=== PATIENT | male | born 1955 | race African-American/Black ===

== ENCOUNTER 2022-01-21 12:21 | Inpatient (IN) | payer BC ==
[2022-01-21] MEDS ORDERED: NALOXONE HCL (KLOXXADO) 8 MG SPRAY NS PRN (15:02)
[2022-01-21] MEDS ORDERED: ONDANSETRON *ODT* 4 MG TABLET SL PRN (15:02)
[2022-01-21] MEDS ORDERED: ACETAMINOPHEN 325 MG TABLET (FP) PO PRN ×2 (15:02)
[2022-01-21] MEDS ORDERED: NICOTINE 10 MG CARTRIDGE (INHALER) IH PRN (15:02)
[2022-01-21] MEDS ORDERED: BISMUTH SUBSALICYLATE 262 MG/15 ML BTL PO PRN (15:02)
[2022-01-21] MEDS ORDERED: BENZOCAINE/MENTHOL (CHLORASEPTIC ) LOZENGE MM PRN (15:02)
[2022-01-21] MEDS ORDERED: IBUPROFEN 400 MG TABLET (FP) PO PRN (15:02)
[2022-01-21] MEDS ORDERED: MAGNESIUM CITRATE 300 ML BOTTLE PO PRN (15:02)
[2022-01-21] MEDS ORDERED: MAGNESIUM HYDROX 2400MG/30ML ORAL SUSPENSION 30 ML CUP PO PRN (15:02)
[2022-01-21] MEDS ORDERED: MAG HYDROX/AL HYDROX/SIMETH 30 ML UNIT-DOSE CUP PO PRN (15:02)
[2022-01-21] MEDS ORDERED: cloNIDine HCL 0.1 MG TABLET PO ONE ×2 (15:06→17:48)
[2022-01-21 15:32] VITALS: BMI 31.7
[2022-01-21] MEDS ORDERED: hydrOXYzine PAMOATE 25 MG CAPSULE (FP) PO PRN (18:00)
[2022-01-21] MEDS: PRENATAL VITAMINS W/ FOLIC ACID TABLET (FP) PO SCH (18:03)
[2022-01-21] MEDS: DICYCLOMINE HCL 10 MG CAPSULE PO PRN (20:26)
[2022-01-21] MEDS ORDERED: chlordiazePOXIDE HCL 25 MG CAPSULE PO PRN (20:44)
[2022-01-21] MEDS ORDERED: methaDONE HCL 10 MG TABLET (FOR DETOX USE ONLY) PO ONE (20:49)
[2022-01-21] MEDS: MINERAL OIL/PET HY-PHL TOPICAL OINTMENT 454 GM JAR TP SCH (22:35)
[2022-01-21] MEDS: METHOCARBAMOL 500 MG TABLET PO PRN (22:36)
[2022-01-21] MEDS: THIAMINE HCL 100 MG TABLET (FP) PO SCH (22:37)
[2022-01-21] MEDS: chlordiazePOXIDE HCL 25 MG CAPSULE PO SCH (22:37)
[2022-01-21] MEDS: LOPERAMIDE HCL 2 MG CAPSULE PO PRN (22:40)
[2022-01-21] MEDS: MELATONIN 5 MG TABLETS PO SCH (22:40)
[2022-01-21] MEDS: VITAMINS A AND D TOPICAL OINTMENT 60 GM TUBE TP SCH (23:04)
[2022-01-22] MEDS: chlordiazePOXIDE HCL 25 MG CAPSULE PO SCH ×4 (05:25→22:25)
[2022-01-22] MEDS: VITAMINS A AND D TOPICAL OINTMENT 60 GM TUBE TP SCH ×4 (05:27→22:25)
[2022-01-22] MEDS: PRENATAL VITAMINS W/ FOLIC ACID TABLET (FP) PO SCH (10:41)
[2022-01-22] MEDS: MINERAL OIL/PET HY-PHL TOPICAL OINTMENT 454 GM JAR TP SCH (10:43)
[2022-01-22] MEDS: LOPERAMIDE HCL 2 MG CAPSULE PO PRN ×2 (10:44→18:01)
[2022-01-22 10:46] LABS: HEMATOCRIT 37.9 % (35.4-49); HEMOGLOBIN 12.5 GM/dL (11.7-16.9); MCH 29.6 pg (25.7-33.7); MEAN CELL VOLUME 89.7 fl (80-96); MEAN PLT VOLUME 9.4 fl (7.5-11.1); PLATELET COUNT 206 10^3/uL (134-434); RBC 4.22 M/mm3 (4.00-5.60); RDW 12.4 % (11.9-15.9); WHITE BLOOD COUNT 6.6 K/mm3 (4.0-10.0)
[2022-01-22 11:05] LABS: CALCIUM 9.2 mg/dL (8.5-10.1)
[2022-01-22 11:06] LABS: ALBUMIN 3.4 g/dl (3.4-5.0)
[2022-01-22 11:09] LABS: CREATININE 1.1 mg/dL (0.55-1.3)
[2022-01-22 11:10] LABS: BILIRUBIN,TOTAL 0.8 mg/dL (0.2-1)
[2022-01-22 11:13] LABS: TOT PROT 6.7 g/dl (6.4-8.2)
[2022-01-22] MEDS: DICYCLOMINE HCL 10 MG CAPSULE PO PRN (18:01)
[2022-01-22] MEDS: THIAMINE HCL 100 MG TABLET (FP) PO SCH (22:25)
[2022-01-22] MEDS: MELATONIN 5 MG TABLETS PO SCH (22:25)
[2022-01-23] MEDS: VITAMINS A AND D TOPICAL OINTMENT 60 GM TUBE TP SCH ×5 (01:52→23:15)
[2022-01-23] MEDS: chlordiazePOXIDE HCL 25 MG CAPSULE PO SCH ×4 (05:17→22:17)
[2022-01-23] MEDS ORDERED: methaDONE HCL 10 MG TABLET (FOR DETOX USE ONLY) PO ONE (10:00)
[2022-01-23] MEDS: METHOCARBAMOL 500 MG TABLET PO PRN (10:24)
[2022-01-23] MEDS: PRENATAL VITAMINS W/ FOLIC ACID TABLET (FP) PO SCH (10:25)
[2022-01-23] MEDS: MINERAL OIL/PET HY-PHL TOPICAL OINTMENT 454 GM JAR TP SCH (10:27)
[2022-01-23] MEDS: THIAMINE HCL 100 MG TABLET (FP) PO SCH (22:17)
[2022-01-23] MEDS: MELATONIN 5 MG TABLETS PO SCH (22:17)
[2022-01-24] MEDS ORDERED: chlordiazePOXIDE HCL 10 MG CAPSULE PO PRN
[2022-01-24] MEDS ORDERED: chlordiazePOXIDE HCL 10 MG CAPSULE PO SCH (05:00)
[2022-01-24] MEDS: VITAMINS A AND D TOPICAL OINTMENT 60 GM TUBE TP SCH (05:24)
[2022-01-24] MEDS: METHOCARBAMOL 500 MG TABLET PO PRN (05:24)
[2022-01-24 08:02] VITALS: BP 168/84; PULSE 62; TEMP 97.1
[2022-01-24] MEDS ORDERED: methaDONE HCL 10 MG TABLET (FOR DETOX USE ONLY) PO ONE (10:00)
[2022-01-25] MEDS ORDERED: chlordiazePOXIDE HCL 10 MG CAPSULE PO SCH (05:00)
[2022-01-26] MEDS ORDERED: chlordiazePOXIDE HCL 10 MG CAPSULE PO ONE (05:00)
== END 2022-01-24 09:50 | disposition left against medical advice (07) | DRG 894 ==
LOC: YASAS 12:21 → Y3N 15:47
PROVIDERS: ADMIT Allergy & Immunology; ATTEND Surgery
PROC: HZ2ZZZZ Detoxification Services for Substance Abuse Treatment (ICD-10-PCS; principal; 2022-01-21)
DX: F11.23 Opioid dependence with withdrawal (principal); F10.230 Alcohol dependence with withdrawal, uncomplicated; L40.9 Psoriasis, unspecified
CPT/HCPCS: 36415; 80053; 85027; 86780; 87811; 93005; 93010; C9803-CS; J0735; Q0162; U0003; U0005

== ENCOUNTER 2022-03-21 08:34 | Inpatient (IN) | payer BC ==
[2022-03-21] MEDS ORDERED: LISINOPRIL 10 MG TABLET PO STA (09:06)
[2022-03-21] MEDS ORDERED: LOPERAMIDE HCL 2 MG CAPSULE PO PRN (09:31)
[2022-03-21] MEDS ORDERED: MAGNESIUM CITRATE 300 ML BOTTLE PO PRN (09:31)
[2022-03-21] MEDS ORDERED: ONDANSETRON *ODT* 4 MG TABLET SL PRN (09:31)
[2022-03-21] MEDS ORDERED: BISMUTH SUBSALICYLATE 524 MG/30 ML PO PRN (09:31)
[2022-03-21] MEDS ORDERED: IBUPROFEN 400 MG TABLET (FP) PO PRN (09:31)
[2022-03-21] MEDS ORDERED: ACETAMINOPHEN 325 MG TABLET (FP) PO PRN ×2 (09:31)
[2022-03-21] MEDS ORDERED: methaDONE HCL 10 MG TABLET (FOR DETOX USE ONLY) PO ONE (09:31)
[2022-03-21] MEDS ORDERED: MAGNESIUM HYDROX 2400MG/30ML ORAL SUSPENSION 30 ML CUP PO PRN (09:31)
[2022-03-21] MEDS ORDERED: DICYCLOMINE HCL 10 MG CAPSULE PO PRN (09:31)
[2022-03-21] MEDS ORDERED: LORazepam 2 MG TABLET PO ONE (09:31)
[2022-03-21] MEDS ORDERED: BENZOCAINE/MENTHOL (CHLORASEPTIC ) LOZENGE MM PRN (09:31)
[2022-03-21] MEDS ORDERED: MAG HYDROX/AL HYDROX/SIMETH 30 ML UNIT-DOSE CUP PO PRN (09:31)
[2022-03-21] MEDS ORDERED: LORazepam 1 MG TABLET PO PRN (09:31)
[2022-03-21] MEDS ORDERED: IBUPROFEN 600 MG TABLET (FP) PO PRN (09:31)
[2022-03-21] MEDS ORDERED: COLLOIDAL OATMEAL 1 BAR EACH TP PRN (09:48)
[2022-03-21] MEDS ORDERED: HYDROCORTISONE 1% TOPICAL OINT 30 GM TUBE TP PRN (09:48)
[2022-03-21] MEDS ORDERED: LISINOPRIL 10 MG TABLET ONE (10:16)
[2022-03-21 10:29] VITALS: BMI 33.2
[2022-03-21] MEDS ORDERED: methaDONE HCL 10 MG TABLET (FOR DETOX USE ONLY) ONE (11:24)
[2022-03-21] MEDS ORDERED: LORazepam 2 MG TABLET ONE (11:25)
[2022-03-21] MEDS ORDERED: cloNIDine HCL 0.1 MG TABLET ONE (11:25)
[2022-03-21] MEDS: cloNIDine HCL 0.1 MG TABLET PO PRN ×2 (11:30→22:23)
[2022-03-21] MEDS: PRENATAL VITAMINS W/ FOLIC ACID TABLET (FP) PO SCH (14:32)
[2022-03-21] MEDS: LORazepam 2 MG TABLET PO SCH ×2 (18:13→22:24)
[2022-03-21] MEDS: MELATONIN 5 MG TABLETS PO SCH (22:23)
[2022-03-21] MEDS: THIAMINE HCL 100 MG TABLET (FP) PO SCH (22:24)
[2022-03-22] MEDS: LORazepam 2 MG TABLET PO SCH ×4 (05:27→22:08)
[2022-03-22] MEDS: cloNIDine HCL 0.1 MG TABLET PO PRN ×3 (08:11→22:09)
[2022-03-22] MEDS: METHOCARBAMOL 500 MG TABLET PO PRN ×2 (08:13→17:44)
[2022-03-22 09:08] LABS: HEMATOCRIT 39.7 % (35.4-49); HEMOGLOBIN 13.4 GM/dL (11.7-16.9); MCH 29.6 pg (25.7-33.7); MCHC 33.9 g/dl (32.0-35.9); MEAN CELL VOLUME 87.2 fl (80-96); MEAN PLT VOLUME 9.5 fl (7.5-11.1); PLATELET COUNT 208 10^3/uL (134-434); RBC 4.55 M/mm3 (4.00-5.60); RDW 12.1 % (11.9-15.9); WHITE BLOOD COUNT 7.1 K/mm3 (4.0-10.0)
[2022-03-22 09:13] LABS: CALCIUM 9.5 mg/dL (8.5-10.1)
[2022-03-22] MEDS ORDERED: methaDONE HCL 10 MG TABLET (FOR DETOX USE ONLY) ONE (09:13)
[2022-03-22 09:14] LABS: ALBUMIN 3.4 g/dl (3.4-5.0); BLOOD UREA NITROGEN 13.8 mg/dL (7-18)
[2022-03-22 09:19] LABS: BILIRUBIN,TOTAL 0.4 mg/dL (0.2-1)
[2022-03-22] MEDS: PRENATAL VITAMINS W/ FOLIC ACID TABLET (FP) PO SCH (10:57)
[2022-03-22] MEDS: LISINOPRIL 5 MG TABLET PO SCH (10:57)
[2022-03-22 16:54] LABS: HIV INTERPRETATION NEGATIVE (NEGATIVE)
[2022-03-22] MEDS: THIAMINE HCL 100 MG TABLET (FP) PO SCH (22:08)
[2022-03-22] MEDS: MELATONIN 5 MG TABLETS PO SCH (22:08)
[2022-03-23] MEDS: cloNIDine HCL 0.1 MG TABLET PO PRN (06:05)
[2022-03-23] MEDS: LORazepam 1 MG TABLET PO SCH ×4 (06:05→22:15)
[2022-03-23] MEDS: METHOCARBAMOL 500 MG TABLET PO PRN (06:05)
[2022-03-23] MEDS ORDERED: methaDONE HCL 10 MG TABLET (FOR DETOX USE ONLY) PO ONE (10:00)
[2022-03-23] MEDS: PRENATAL VITAMINS W/ FOLIC ACID TABLET (FP) PO SCH (10:11)
[2022-03-23] MEDS: LISINOPRIL 5 MG TABLET PO SCH (10:12)
[2022-03-23] MEDS ORDERED: LISINOPRIL 5 MG TABLET PO ONE (13:32)
[2022-03-23] MEDS: MELATONIN 5 MG TABLETS PO SCH (22:16)
[2022-03-23] MEDS: THIAMINE HCL 100 MG TABLET (FP) PO SCH (22:16)
[2022-03-24] MEDS ORDERED: LORazepam 0.5 MG TABLET PO PRN
[2022-03-24] MEDS: LORazepam 0.5 MG TABLET PO SCH ×4 (05:16→22:29)
[2022-03-24 06:07] VITALS: RESP 18
[2022-03-24] MEDS ORDERED: methaDONE HCL 10 MG TABLET (FOR DETOX USE ONLY) ONE (09:38)
[2022-03-24] MEDS: METHOCARBAMOL 500 MG TABLET PO PRN (10:01)
[2022-03-24] MEDS: LISINOPRIL 10 MG TABLET PO SCH (10:01)
[2022-03-24] MEDS: PRENATAL VITAMINS W/ FOLIC ACID TABLET (FP) PO SCH (10:01)
[2022-03-24] MEDS: MELATONIN 5 MG TABLETS PO SCH (22:30)
[2022-03-24] MEDS: THIAMINE HCL 100 MG TABLET (FP) PO SCH (22:31)
[2022-03-25] MEDS ORDERED: LORazepam 0.5 MG TABLET PO ONE (05:00)
[2022-03-25 06:03] VITALS: TEMP 97.5
[2022-03-25 08:48] VITALS: BP 149/80; PULSE 78
[2022-03-25] MEDS: LISINOPRIL 10 MG TABLET PO SCH (09:14)
[2022-03-25] MEDS: PRENATAL VITAMINS W/ FOLIC ACID TABLET (FP) PO SCH (09:15)
[2022-03-25] MEDS ORDERED: methaDONE HCL 10 MG TABLET (FOR DETOX USE ONLY) PO ONE (10:00)
== END 2022-03-25 10:00 | disposition home or self-care (01) | DRG 897 ==
LOC: YASAS 08:34 → Y3N 13:32
PROVIDERS: ADMIT Allergy & Immunology; ATTEND Surgery
PROC: HZ2ZZZZ Detoxification Services for Substance Abuse Treatment (ICD-10-PCS; principal; 2022-03-21)
DX: F11.23 Opioid dependence with withdrawal (principal); F10.230 Alcohol dependence with withdrawal, uncomplicated; I10 Essential (primary) hypertension; L40.9 Psoriasis, unspecified
CPT/HCPCS: 36415; 80053; 85027; 86780; 87389; 87811; C9803-CS; J0735; U0003; U0005

== ENCOUNTER 2022-08-12 10:05 | Inpatient (IN) | payer BC ==
[2022-08-12 11:03] VITALS: BMI 30.2
[2022-08-12] MEDS ORDERED: cloNIDine HCL 0.1 MG TABLET PO ONE (11:56)
[2022-08-12] MEDS ORDERED: ONDANSETRON *ODT* 4 MG TABLET SL PRN (11:58)
[2022-08-12] MEDS ORDERED: MAG HYDROX/AL HYDROX/SIMETH 30 ML UNIT-DOSE CUP PO PRN (11:58)
[2022-08-12] MEDS ORDERED: NALOXONE HCL (KLOXXADO) 8 MG SPRAY NS PRN (11:58)
[2022-08-12] MEDS ORDERED: MAGNESIUM HYDROX 2400MG/30ML ORAL SUSPENSION 30 ML CUP PO PRN (11:58)
[2022-08-12] MEDS ORDERED: METHOCARBAMOL 500 MG TABLET PO PRN (11:58)
[2022-08-12] MEDS ORDERED: DICYCLOMINE HCL 10 MG CAPSULE PO PRN (11:58)
[2022-08-12] MEDS ORDERED: methaDONE HCL 10 MG TABLET (FOR DETOX USE ONLY) PO ONE (11:58)
[2022-08-12] MEDS ORDERED: IBUPROFEN 400 MG TABLET (FP) PO PRN (11:58)
[2022-08-12] MEDS ORDERED: BENZOCAINE/MENTHOL (CHLORASEPTIC ) LOZENGE MM PRN (11:58)
[2022-08-12] MEDS ORDERED: hydrOXYzine PAMOATE 25 MG CAPSULE (FP) PO PRN (11:58)
[2022-08-12] MEDS ORDERED: chlordiazePOXIDE HCL 25 MG CAPSULE PO PRN (11:58)
[2022-08-12] MEDS ORDERED: ACETAMINOPHEN 325 MG TABLET (FP) PO PRN ×2 (11:58)
[2022-08-12] MEDS ORDERED: POLYETHYLENE GLYCOL (HEALTHYLAX) 3350 17 GM PACKET PO PRN (11:58)
[2022-08-12] MEDS ORDERED: LOPERAMIDE HCL 2 MG CAPSULE PO PRN (11:58)
[2022-08-12] MEDS ORDERED: BISMUTH SUBSALICYLATE 262 MG/15 ML BTL PO PRN (11:58)
[2022-08-12] MEDS ORDERED: cloNIDine HCL 0.1 MG TABLET ONE (12:02)
[2022-08-12] MEDS ORDERED: ACETAMINOPHEN 325 MG TABLET (FP) ONE (12:50)
[2022-08-12] MEDS ORDERED: methaDONE HCL 10 MG TABLET (FOR DETOX USE ONLY) ONE (13:35)
[2022-08-12] MEDS: chlordiazePOXIDE HCL 25 MG CAPSULE PO SCH ×2 (17:40→22:23)
[2022-08-12] MEDS: cloNIDine HCL 0.1 MG TABLET PO PRN ×2 (18:02→21:33)
[2022-08-12] MEDS: MELATONIN 5 MG TABLETS PO SCH (21:38)
[2022-08-12] MEDS: THIAMINE HCL 100 MG TABLET (FP) PO SCH (21:39)
[2022-08-13] MEDS ORDERED: LISINOPRIL 20 MG TABLET PO ONE (01:04)
[2022-08-13] MEDS: chlordiazePOXIDE HCL 25 MG CAPSULE PO SCH ×4 (05:46→22:40)
[2022-08-13 10:17] LABS: HEMATOCRIT 38.1 % (35.4-49); HEMOGLOBIN 12.5 GM/dL (11.7-16.9); MCH 29.1 pg (25.7-33.7); MCHC 32.9 g/dl (32.0-35.9); MEAN CELL VOLUME 88.6 fl (80-96); MEAN PLT VOLUME 9.7 fl (7.5-11.1); PLATELET COUNT 200 10^3/uL (134-434); WHITE BLOOD COUNT 7.8 K/mm3 (4.0-10.0)
[2022-08-13] MEDS: PRENATAL VITAMINS W/ FOLIC ACID TABLET (FP) PO SCH (10:22)
[2022-08-13 10:46] LABS: ALBUMIN 3.5 g/dl (3.4-5.0)
[2022-08-13 10:51] LABS: BILIRUBIN,TOTAL 0.5 mg/dL (0.2-1); TOT PROT 6.9 g/dl (6.4-8.2)
[2022-08-13] MEDS: cloNIDine HCL 0.1 MG TABLET PO PRN ×2 (12:57→22:40)
[2022-08-13] MEDS: MELATONIN 5 MG TABLETS PO SCH (22:40)
[2022-08-13] MEDS: THIAMINE HCL 100 MG TABLET (FP) PO SCH (22:40)
[2022-08-14] MEDS: chlordiazePOXIDE HCL 25 MG CAPSULE PO SCH ×4 (05:38→22:25)
[2022-08-14] MEDS: IBUPROFEN 600 MG TABLET (FP) PO PRN (05:44)
[2022-08-14] MEDS ORDERED: methaDONE HCL 10 MG TABLET (FOR DETOX USE ONLY) PO ONE (10:00)
[2022-08-14] MEDS: PRENATAL VITAMINS W/ FOLIC ACID TABLET (FP) PO SCH (10:06)
[2022-08-14] MEDS: cloNIDine HCL 0.1 MG TABLET PO PRN ×2 (17:12→22:25)
[2022-08-14] MEDS ORDERED: guaiFENesin 200 MG/10 ML 10 ML UNIT-DOSE CUPS PO PRN (17:18)
[2022-08-14] MEDS: MELATONIN 5 MG TABLETS PO SCH (22:25)
[2022-08-14] MEDS: THIAMINE HCL 100 MG TABLET (FP) PO SCH (22:25)
[2022-08-15] MEDS ORDERED: chlordiazePOXIDE HCL 10 MG CAPSULE PO PRN
[2022-08-15] MEDS: IBUPROFEN 600 MG TABLET (FP) PO PRN (05:20)
[2022-08-15] MEDS: chlordiazePOXIDE HCL 10 MG CAPSULE PO SCH ×2 (05:54→10:30)
[2022-08-15] MEDS: PRENATAL VITAMINS W/ FOLIC ACID TABLET (FP) PO SCH (10:31)
[2022-08-15 13:10] VITALS: BP 155/76; PULSE 64; RESP 19; TEMP 98.4
[2022-08-16] MEDS ORDERED: chlordiazePOXIDE HCL 10 MG CAPSULE PO SCH (05:00)
[2022-08-16] MEDS ORDERED: methaDONE HCL 10 MG TABLET (FOR DETOX USE ONLY) PO ONE (10:00)
[2022-08-17] MEDS ORDERED: chlordiazePOXIDE HCL 10 MG CAPSULE PO ONE (05:00)
== END 2022-08-15 17:20 | disposition left against medical advice (07) | DRG 894 ==
LOC: YASAS 10:05 → Y3N 12:55
PROVIDERS: ADMIT Allergy & Immunology; ATTEND Surgery
PROC: HZ2ZZZZ Detoxification Services for Substance Abuse Treatment (ICD-10-PCS; principal; 2022-08-12)
DX: F11.23 Opioid dependence with withdrawal (principal); U07.1 COVID-19; F10.230 Alcohol dependence with withdrawal, uncomplicated; I10 Essential (primary) hypertension; L30.9 Dermatitis, unspecified; Z91.14 Patient's other noncompliance with medication regimen
CPT/HCPCS: 36415; 80053; 85027; 86780; 87811; C9803-CS; U0003; U0005

== ENCOUNTER 2022-12-15 11:22 | Inpatient (IN) | payer BC ==
[2022-12-15 11:57] VITALS: BMI 30.4
[2022-12-15] MEDS ORDERED: LORazepam 1 MG TABLET PO PRN (11:58)
[2022-12-15] MEDS ORDERED: MAG HYDROX/AL HYDROX/SIMETH 30 ML UNIT-DOSE CUP PO PRN (11:58)
[2022-12-15] MEDS ORDERED: NALOXONE HCL (KLOXXADO) 8 MG SPRAY NS PRN (11:58)
[2022-12-15] MEDS ORDERED: IBUPROFEN 600 MG TABLET (FP) PO PRN (11:58)
[2022-12-15] MEDS ORDERED: BENZOCAINE/MENTHOL (CHLORASEPTIC ) LOZENGE MM PRN (11:58)
[2022-12-15] MEDS ORDERED: NICOTINE 10 MG CARTRIDGE (INHALER) IH PRN (11:58)
[2022-12-15] MEDS ORDERED: methaDONE HCL 10 MG TABLET (FOR DETOX USE ONLY) PO ONE (11:58)
[2022-12-15] MEDS ORDERED: POLYETHYLENE GLYCOL (HEALTHYLAX) 3350 17 GM PACKET PO PRN (11:58)
[2022-12-15] MEDS ORDERED: MAGNESIUM HYDROX 2400MG/30ML ORAL SUSPENSION 30 ML CUP PO PRN (11:58)
[2022-12-15] MEDS ORDERED: LOPERAMIDE HCL 2 MG CAPSULE PO PRN (11:58)
[2022-12-15] MEDS ORDERED: IBUPROFEN 400 MG TABLET (FP) PO PRN (11:58)
[2022-12-15] MEDS ORDERED: DICYCLOMINE HCL 10 MG CAPSULE PO PRN (11:58)
[2022-12-15] MEDS ORDERED: BISMUTH SUBSALICYLATE 262 MG/15 ML BTL PO PRN (11:58)
[2022-12-15] MEDS ORDERED: guaiFENesin 600 MG TABLET.ER (FP) PO PRN (11:58)
[2022-12-15] MEDS ORDERED: METHOCARBAMOL 500 MG TABLET PO PRN (11:58)
[2022-12-15] MEDS ORDERED: NALOXONE HCL 0.4 MG/ML VIAL IM PRN (11:58)
[2022-12-15] MEDS ORDERED: BENZONATATE 200 MG CAPSULE PO PRN (11:58)
[2022-12-15] MEDS ORDERED: ONDANSETRON *ODT* 4 MG TABLET SL PRN (11:58)
[2022-12-15] MEDS ORDERED: methaDONE HCL 10 MG TABLET (FOR DETOX USE ONLY) ONE (12:51)
[2022-12-15] MEDS ORDERED: cloNIDine HCL 0.1 MG TABLET ONE (12:51)
[2022-12-15] MEDS: cloNIDine HCL 0.1 MG TABLET PO PRN ×2 (12:53→22:41)
[2022-12-15] MEDS ORDERED: cloNIDine HCL 0.1 MG TABLET PO ONE (13:55)
[2022-12-15 17:27] LABS: HEMOGLOBIN 13.6 GM/dL (11.7-16.9); MCH 29.5 pg (25.7-33.7); MCHC 33.9 g/dl (32.0-35.9); MEAN CELL VOLUME 86.8 fl (80-96); MEAN PLT VOLUME 9.5 fl (7.5-11.1); PLATELET COUNT 192 10^3/uL (134-434); RBC 4.61 M/mm3 (4.00-5.60); RDW 12.4 % (11.9-15.9); WHITE BLOOD COUNT 6.7 K/mm3 (4.0-10.0)
[2022-12-15] MEDS: LORazepam 2 MG TABLET PO SCH ×2 (17:29→22:41)
[2022-12-15 17:32] LABS: ALBUMIN 3.8 g/dl (3.4-5.0); BLOOD UREA NITROGEN 11.8 mg/dL (7-18); CALCIUM 9.7 mg/dL (8.5-10.1)
[2022-12-15 17:36] LABS: CREATININE 0.9 mg/dL (0.55-1.3)
[2022-12-15 17:37] LABS: BILIRUBIN,TOTAL 0.4 mg/dL (0.2-1); TOT PROT 7.5 g/dl (6.4-8.2)
[2022-12-15] MEDS ORDERED: MELATONIN 5 MG TABLETS PO SCH (22:00)
[2022-12-15] MEDS: TRIAMCINOLONE ACET 0.1% OINT 15 GM TUBE TP SCH (22:39)
[2022-12-15] MEDS: hydrOXYzine PAMOATE 25 MG CAPSULE (FP) PO PRN (22:40)
[2022-12-15] MEDS: THIAMINE HCL 100 MG TABLET (FP) PO SCH (22:40)
[2022-12-16] MEDS: LORazepam 2 MG TABLET PO SCH ×4 (06:08→22:47)
[2022-12-16] MEDS: PRENATAL VITAMINS W/ FOLIC ACID TABLET (FP) PO SCH (10:35)
[2022-12-16] MEDS: amLODIPine BESYLATE 10 MG TABLET (FP) PO SCH (10:36)
[2022-12-16] MEDS: TRIAMCINOLONE ACET 0.1% OINT 15 GM TUBE TP SCH ×2 (11:23→22:48)
[2022-12-16] MEDS: ACETAMINOPHEN 325 MG TABLET (FP) PO PRN ×2 (12:51→14:42)
[2022-12-16] MEDS: cloNIDine HCL 0.1 MG TABLET PO PRN (14:44)
[2022-12-16] MEDS: MELATONIN 5 MG TABLETS PO SCH (22:46)
[2022-12-16] MEDS: hydrOXYzine PAMOATE 25 MG CAPSULE (FP) PO PRN (22:47)
[2022-12-16] MEDS: THIAMINE HCL 100 MG TABLET (FP) PO SCH (22:47)
[2022-12-17] MEDS: LORazepam 1 MG TABLET PO SCH ×4 (05:56→22:34)
[2022-12-17] MEDS: cloNIDine HCL 0.1 MG TABLET PO PRN ×2 (05:57→14:20)
[2022-12-17] MEDS ORDERED: methaDONE HCL 10 MG TABLET (FOR DETOX USE ONLY) PO ONE (10:00)
[2022-12-17] MEDS: amLODIPine BESYLATE 10 MG TABLET (FP) PO SCH (10:49)
[2022-12-17] MEDS: PRENATAL VITAMINS W/ FOLIC ACID TABLET (FP) PO SCH (10:49)
[2022-12-17] MEDS: TRIAMCINOLONE ACET 0.1% OINT 15 GM TUBE TP SCH ×2 (10:54→22:35)
[2022-12-17] MEDS: THIAMINE HCL 100 MG TABLET (FP) PO SCH (22:34)
[2022-12-17] MEDS: MELATONIN 5 MG TABLETS PO SCH (22:34)
[2022-12-18] MEDS ORDERED: LORazepam 0.5 MG TABLET PO PRN
[2022-12-18] MEDS: LORazepam 0.5 MG TABLET PO SCH ×4 (05:51→22:47)
[2022-12-18] MEDS: PRENATAL VITAMINS W/ FOLIC ACID TABLET (FP) PO SCH (10:09)
[2022-12-18] MEDS: amLODIPine BESYLATE 10 MG TABLET (FP) PO SCH (10:10)
[2022-12-18] MEDS: TRIAMCINOLONE ACET 0.1% OINT 15 GM TUBE TP SCH ×2 (10:48→22:47)
[2022-12-18] MEDS: MELATONIN 5 MG TABLETS PO SCH (22:46)
[2022-12-18] MEDS: THIAMINE HCL 100 MG TABLET (FP) PO SCH (22:46)
[2022-12-19] MEDS ORDERED: LORazepam 0.5 MG TABLET PO ONE (05:00)
[2022-12-19] MEDS ORDERED: methaDONE HCL 10 MG TABLET (FOR DETOX USE ONLY) PO ONE (10:00)
[2022-12-19] MEDS: amLODIPine BESYLATE 10 MG TABLET (FP) PO SCH (10:35)
[2022-12-19] MEDS: PRENATAL VITAMINS W/ FOLIC ACID TABLET (FP) PO SCH (10:36)
[2022-12-19] MEDS: TRIAMCINOLONE ACET 0.1% OINT 15 GM TUBE TP SCH ×2 (10:36→22:37)
[2022-12-19] MEDS: MELATONIN 5 MG TABLETS PO SCH (22:35)
[2022-12-19] MEDS: THIAMINE HCL 100 MG TABLET (FP) PO SCH (22:35)
[2022-12-20] MEDS: amLODIPine BESYLATE 10 MG TABLET (FP) PO SCH (09:43)
[2022-12-20] MEDS: PRENATAL VITAMINS W/ FOLIC ACID TABLET (FP) PO SCH (09:43)
[2022-12-20] MEDS: TRIAMCINOLONE ACET 0.1% OINT 15 GM TUBE TP SCH (09:43)
[2022-12-20 10:01] VITALS: BP 146/80; PULSE 66; RESP 16; TEMP 97.6
== END 2022-12-20 08:38 | disposition home or self-care (01) | DRG 897 ==
LOC: YASAS 11:22 → Y3N 12:26
PROVIDERS: ADMIT Allergy & Immunology; ATTEND Surgery
PROC: HZ2ZZZZ Detoxification Services for Substance Abuse Treatment (ICD-10-PCS; principal; 2022-12-15)
DX: F11.23 Opioid dependence with withdrawal (principal); F10.230 Alcohol dependence with withdrawal, uncomplicated; I10 Essential (primary) hypertension; L30.9 Dermatitis, unspecified
CPT/HCPCS: 36415; 80053; 85027; 86780; 87811; 93005; 93010; C9803-CS; U0003; U0005

== ENCOUNTER 2023-04-01 13:20 | Inpatient (IN) | payer BC ==
[2023-04-01] MEDS ORDERED: cloNIDine HCL 0.1 MG TABLET PO ONE (13:50)
[2023-04-01 13:58] VITALS: BMI 32.9
[2023-04-01] MEDS ORDERED: guaiFENesin 600 MG TABLET.ER (FP) PO PRN (14:35)
[2023-04-01] MEDS ORDERED: POLYETHYLENE GLYCOL (HEALTHYLAX) 3350 17 GM PACKET PO PRN (14:35)
[2023-04-01] MEDS ORDERED: LOPERAMIDE HCL 2 MG CAPSULE PO PRN (14:35)
[2023-04-01] MEDS ORDERED: MAG HYDROX/AL HYDROX/SIMETH 30 ML UNIT-DOSE CUP PO PRN (14:35)
[2023-04-01] MEDS ORDERED: P-EPHED 60MG/TRIPROLIDI 2.5MG TABLET PO PRN (14:35)
[2023-04-01] MEDS ORDERED: BISMUTH SUBSALICYLATE 262 MG/15 ML BTL PO PRN (14:35)
[2023-04-01] MEDS ORDERED: NALOXONE HCL 0.4 MG/ML VIAL IM PRN (14:35)
[2023-04-01] MEDS ORDERED: NALOXONE HCL (KLOXXADO) 8 MG SPRAY NS PRN (14:35)
[2023-04-01] MEDS ORDERED: MAGNESIUM HYDROX 2400MG/30ML ORAL SUSPENSION 30 ML CUP PO PRN (14:35)
[2023-04-01] MEDS ORDERED: BENZONATATE 200 MG CAPSULE PO PRN (14:35)
[2023-04-01] MEDS ORDERED: ONDANSETRON *ODT* 4 MG TABLET SL PRN (14:35)
[2023-04-01] MEDS ORDERED: hydrOXYzine PAMOATE 25 MG CAPSULE (FP) PO PRN (14:35)
[2023-04-01] MEDS ORDERED: IBUPROFEN 400 MG TABLET (FP) PO PRN (14:35)
[2023-04-01] MEDS ORDERED: BENZOCAINE/MENTHOL (CHLORASEPTIC ) LOZENGE MM PRN (14:35)
[2023-04-01] MEDS: HYDROCORTISONE 1% TOPICAL OINT 30 GM TUBE TP SCH (21:53)
[2023-04-01] MEDS: THIAMINE HCL 100 MG TABLET (FP) PO SCH (21:53)
[2023-04-01] MEDS: MELATONIN 5 MG TABLETS PO SCH (21:53)
[2023-04-01] MEDS ORDERED: methaDONE HCL 10 MG TABLET (FOR DETOX USE ONLY) PO ONE (22:33)
[2023-04-01] MEDS: diazePAM 5 MG TABLET PO SCH (23:01)
[2023-04-01] MEDS: cloNIDine HCL 0.1 MG TABLET PO PRN (23:17)
[2023-04-02] MEDS: diazePAM 5 MG TABLET PO SCH ×4 (05:45→22:25)
[2023-04-02] MEDS: cloNIDine HCL 0.1 MG TABLET PO PRN ×2 (05:45→17:40)
[2023-04-02] MEDS: HYDROCORTISONE 1% TOPICAL OINT 30 GM TUBE TP SCH ×2 (10:13→22:26)
[2023-04-02] MEDS: PRENATAL VITAMINS W/ FOLIC ACID TABLET (FP) PO SCH (10:15)
[2023-04-02 11:08] LABS: HEMATOCRIT 37.6 % (35.4-49); HEMOGLOBIN 12.4 GM/dL (11.7-16.9); MCH 29.7 pg (25.7-33.7); MCHC 32.9 g/dl (32.0-35.9); MEAN CELL VOLUME 90.1 fl (80-96); MEAN PLT VOLUME 10.3 fl (7.5-11.1); PLATELET COUNT 163 10^3/uL (134-434); RBC 4.18 M/mm3 (4.00-5.60)
[2023-04-02 12:48] LABS: POTASSIUM 4.1 mmol/L (3.5-5.1)
[2023-04-02 14:19] LABS: CREATININE 0.9 mg/dL (0.55-1.3)
[2023-04-02 14:21] LABS: ALBUMIN 3.2 g/dl (3.4-5.0); BILIRUBIN,TOTAL 0.6 mg/dL (0.2-1); BLOOD UREA NITROGEN 12.2 mg/dL (7-18); TOT PROT 6.4 g/dl (6.4-8.2)
[2023-04-02] MEDS: IBUPROFEN 600 MG TABLET (FP) PO PRN (18:10)
[2023-04-02] MEDS: MELATONIN 5 MG TABLETS PO SCH (22:25)
[2023-04-02] MEDS: THIAMINE HCL 100 MG TABLET (FP) PO SCH (22:25)
[2023-04-03] MEDS: diazePAM 5 MG TABLET PO SCH ×3 (05:27→22:09)
[2023-04-03] MEDS: cloNIDine HCL 0.1 MG TABLET PO PRN ×3 (05:28→22:10)
[2023-04-03] MEDS: IBUPROFEN 600 MG TABLET (FP) PO PRN (05:30)
[2023-04-03] MEDS ORDERED: methaDONE HCL 10 MG TABLET (FOR DETOX USE ONLY) PO ONE (10:00)
[2023-04-03] MEDS: PRENATAL VITAMINS W/ FOLIC ACID TABLET (FP) PO SCH (10:03)
[2023-04-03] MEDS: diazePAM 5 MG TABLET PO PRN ×2 (10:04→17:14)
[2023-04-03] MEDS: HYDROCORTISONE 1% TOPICAL OINT 30 GM TUBE TP SCH ×2 (10:05→22:13)
[2023-04-03] MEDS: amLODIPine BESYLATE 10 MG TABLET (FP) PO SCH (10:06)
[2023-04-03] MEDS: MELATONIN 5 MG TABLETS PO SCH (22:09)
[2023-04-03] MEDS: THIAMINE HCL 100 MG TABLET (FP) PO SCH (22:10)
[2023-04-04] MEDS: diazePAM 5 MG TABLET PO SCH ×2 (05:17→17:08)
[2023-04-04] MEDS: ACETAMINOPHEN 325 MG TABLET (FP) PO PRN ×2 (05:19→19:36)
[2023-04-04] MEDS: PRENATAL VITAMINS W/ FOLIC ACID TABLET (FP) PO SCH (10:09)
[2023-04-04] MEDS: amLODIPine BESYLATE 10 MG TABLET (FP) PO SCH (10:09)
[2023-04-04] MEDS: HYDROCORTISONE 1% TOPICAL OINT 30 GM TUBE TP SCH ×2 (10:09→22:15)
[2023-04-04] MEDS: diazePAM 5 MG TABLET PO PRN ×2 (10:09→22:14)
[2023-04-04 18:48] VITALS: RESP 18
[2023-04-04] MEDS: THIAMINE HCL 100 MG TABLET (FP) PO SCH (22:14)
[2023-04-04] MEDS: MELATONIN 5 MG TABLETS PO SCH (22:14)
[2023-04-05] MEDS: ACETAMINOPHEN 325 MG TABLET (FP) PO PRN (05:56)
[2023-04-05] MEDS ORDERED: diazePAM 5 MG TABLET PO ONE (06:00)
[2023-04-05] MEDS: HYDROCORTISONE 1% TOPICAL OINT 30 GM TUBE TP SCH (09:20)
[2023-04-05] MEDS: PRENATAL VITAMINS W/ FOLIC ACID TABLET (FP) PO SCH (09:20)
[2023-04-05] MEDS: amLODIPine BESYLATE 10 MG TABLET (FP) PO SCH (09:20)
[2023-04-05 09:37] VITALS: BP 155/70; PULSE 75; TEMP 97.5
== END 2023-04-05 09:23 | disposition home or self-care (01) | DRG 897 ==
LOC: YASAS 13:20 → Y3N 15:12
PROVIDERS: ADMIT Allergy & Immunology; ATTEND Surgery
PROC: HZ2ZZZZ Detoxification Services for Substance Abuse Treatment (ICD-10-PCS; principal; 2023-04-01)
DX: F11.23 Opioid dependence with withdrawal (principal); F10.230 Alcohol dependence with withdrawal, uncomplicated; I10 Essential (primary) hypertension; L30.9 Dermatitis, unspecified; L40.9 Psoriasis, unspecified
CPT/HCPCS: 36415; 80053; 85027; 86780; 87635; 87811

== ENCOUNTER 2023-07-04 11:55 | Emergency (ER) | payer BC ==
[2023-07-04 12:19] VITALS: TEMP 98.2; BMI 32.3
[2023-07-04] MEDS ORDERED: LABETALOL HCL 5 MG/1 ML (100MG/20 ML VIAL) IVPUSH ONE ×2 (13:01→14:53)
[2023-07-04] MEDS ORDERED: LABETALOL HCL 20 MG/4 ML VIAL ONE ×2 (13:06→14:56)
[2023-07-04 13:20] LABS: BASO % 0.4 % (0-2.0); EOS % 0.6 % (0-4.5); HEMOGLOBIN 13.7 GM/dL (11.7-16.9); LYMPH % 7.2 % (8-40); MCH 29.5 pg (25.7-33.7); MCHC 32.7 g/dl (32.0-35.9); MEAN CELL VOLUME 90.1 fl (80-96); MONO % 5.4 % (3.8-10.2); NEUT % 86.4 % (42.8-82.8); PLATELET COUNT 220 10^3/uL (134-434); RBC 4.66 M/mm3 (4.00-5.60); RDW 12.2 % (11.9-15.9); WHITE BLOOD COUNT 7.9 K/mm3 (4.0-10.0)
[2023-07-04 13:54] LABS: CALCIUM 9.6 mg/dL (8.5-10.1)
[2023-07-04 13:55] LABS: BLOOD UREA NITROGEN 7.9 mg/dL (7-18)
[2023-07-04 13:58] LABS: CREATININE 0.9 mg/dL (0.55-1.3)
[2023-07-04 14:00] LABS: BILIRUBIN,TOTAL 0.7 mg/dL (0.2-1); TOT PROT 8.1 g/dl (6.4-8.2)
[2023-07-04 14:03] LABS: N-TERMINAL BNP 622.9 pg/ml (5-125)
[2023-07-04] MEDS ORDERED: hydrALAZINE HCL 20 MG/ML VIAL IVPUSH ONE (15:45)
[2023-07-04] MEDS ORDERED: hydrALAZINE HCL 20 MG/ML VIAL ONE (15:54)
[2023-07-04 16:04] VITALS: BP 174/87; PULSE 73; RESP 18
== END 2023-07-04 16:45 | disposition home or self-care (01) ==
LOC: JER 11:55
PROC: 3E033NZ Introduction of Analgesics, Hypnotics, Sedatives into Peripheral Vein, Percutaneous Approach (ICD-10-PCS; principal; 2023-07-04)
PROC: 3E033GC Introduction of Other Therapeutic Substance into Peripheral Vein, Percutaneous Approach (ICD-10-PCS; 2023-07-04)
PROC: 3E033NZ Introduction of Analgesics, Hypnotics, Sedatives into Peripheral Vein, Percutaneous Approach (ICD-10-PCS; 2023-07-04)
DX: I10 Essential (primary) hypertension (principal)
CPT/HCPCS: 36415; 80053; 83880; 84484; 85025; 93005; 93010; 99284-25

== ENCOUNTER 2023-07-04 17:19 | Inpatient (IN) | payer BC ==
[2023-07-04 18:30] VITALS: BMI 29.5
[2023-07-04] MEDS ORDERED: ONDANSETRON *ODT* 4 MG TABLET SL PRN (20:44)
[2023-07-04] MEDS ORDERED: NALOXONE HCL 0.4 MG/ML VIAL IM PRN (20:44)
[2023-07-04] MEDS ORDERED: LOPERAMIDE HCL 2 MG CAPSULE PO PRN (20:44)
[2023-07-04] MEDS ORDERED: IBUPROFEN 600 MG TABLET (FP) PO PRN (20:44)
[2023-07-04] MEDS ORDERED: MAGNESIUM HYDROX 2400MG/30ML ORAL SUSPENSION 30 ML CUP PO PRN (20:44)
[2023-07-04] MEDS ORDERED: BENZONATATE 200 MG CAPSULE PO PRN (20:44)
[2023-07-04] MEDS ORDERED: IBUPROFEN 400 MG TABLET (FP) PO PRN (20:44)
[2023-07-04] MEDS ORDERED: DICYCLOMINE HCL 10 MG CAPSULE PO PRN (20:44)
[2023-07-04] MEDS ORDERED: BISMUTH SUBSALICYLATE 524 MG/30 ML PO PRN (20:44)
[2023-07-04] MEDS ORDERED: cloNIDine HCL 0.1 MG TABLET PO PRN (20:44)
[2023-07-04] MEDS ORDERED: POLYETHYLENE GLYCOL (HEALTHYLAX) 3350 17 GM PACKET PO PRN (20:44)
[2023-07-04] MEDS ORDERED: NALOXONE HCL (KLOXXADO) 8 MG SPRAY NS PRN (20:44)
[2023-07-04] MEDS ORDERED: MAG HYDROX/AL HYDROX/SIMETH 30 ML UNIT-DOSE CUP PO PRN (20:44)
[2023-07-04] MEDS ORDERED: BENZOCAINE/MENTHOL (CHLORASEPTIC ) LOZENGE MM PRN (20:44)
[2023-07-04] MEDS ORDERED: guaiFENesin 600 MG TABLET.ER (FP) PO PRN (20:44)
[2023-07-04] MEDS ORDERED: amLODIPine BESYLATE 5 MG TABLET (FP) ONE (21:10)
[2023-07-04] MEDS ORDERED: HYDROCHLOROTHIAZIDE 12.5 MG CAPSULE (FP) ONE (21:10)
[2023-07-04] MEDS ORDERED: methaDONE HCL 10 MG TABLET (FOR DETOX USE ONLY) PO ONE (21:30)
[2023-07-04] MEDS: HYDROCHLOROTHIAZIDE 25 MG TABLET (FP) PO SCH (21:36)
[2023-07-04] MEDS: amLODIPine BESYLATE 10 MG TABLET (FP) PO SCH (21:36)
[2023-07-04] MEDS: MELATONIN 5 MG TABLETS PO SCH (22:38)
[2023-07-04] MEDS: HYDROCORTISONE 1% TOPICAL OINT 30 GM TUBE TP SCH (22:39)
[2023-07-04] MEDS: THIAMINE HCL 100 MG TABLET (FP) PO SCH (22:39)
[2023-07-05] MEDS: HYDROCORTISONE 1% TOPICAL OINT 30 GM TUBE TP SCH ×2 (10:08→22:15)
[2023-07-05] MEDS: PRENATAL VITAMINS W/ FOLIC ACID TABLET (FP) PO SCH (10:09)
[2023-07-05] MEDS: HYDROCHLOROTHIAZIDE 25 MG TABLET (FP) PO SCH (10:09)
[2023-07-05] MEDS: amLODIPine BESYLATE 10 MG TABLET (FP) PO SCH (10:09)
[2023-07-05 11:52] LABS: CHLORIDE 99 mmol/L (98-107); POTASSIUM 3.7 mmol/L (3.5-5.1); SODIUM 137 mmol/L (136-145)
[2023-07-05 11:56] LABS: CALCIUM 8.9 mg/dL (8.5-10.1)
[2023-07-05 11:57] LABS: ALBUMIN 3.2 g/dl (3.4-5.0); ANION GAP 8 mmol/L (4-13); BLOOD UREA NITROGEN 10.1 mg/dL (7-18); CO2 31 mmol/L (21-32); GLUCOSE,RANDOM 118 mg/dL (74-106)
[2023-07-05 11:59] LABS: CREATININE 1.1 mg/dL (0.55-1.3); HEMATOCRIT 37.4 % (35.4-49); HEMOGLOBIN 12.7 GM/dL (11.7-16.9); MCH 30.1 pg (25.7-33.7); MCHC 33.9 g/dl (32.0-35.9); MEAN CELL VOLUME 88.8 fl (80-96); MEAN PLT VOLUME 9.2 fl (7.5-11.1); PLATELET COUNT 224 10^3/uL (134-434); RBC 4.21 M/mm3 (4.00-5.60); RDW 12.3 % (11.9-15.9); WHITE BLOOD COUNT 6.8 K/mm3 (4.0-10.0)
[2023-07-05 12:00] LABS: SGOT/AST 12 U/L (15-37); SGPT/ALT 13 U/L (13-61)
[2023-07-05 12:01] LABS: TOT PROT 6.7 g/dl (6.4-8.2)
[2023-07-05 12:02] LABS: ALK PHOS 79 U/L (45-117); BILIRUBIN,TOTAL 0.5 mg/dL (0.2-1)
[2023-07-05] MEDS: THIAMINE HCL 100 MG TABLET (FP) PO SCH (22:13)
[2023-07-05] MEDS: MELATONIN 5 MG TABLETS PO SCH (22:13)
[2023-07-06] MEDS: hydrOXYzine PAMOATE 25 MG CAPSULE (FP) PO PRN (05:13)
[2023-07-06] MEDS: ACETAMINOPHEN 325 MG TABLET (FP) PO PRN ×2 (05:13→22:09)
[2023-07-06] MEDS ORDERED: methaDONE HCL 10 MG TABLET (FOR DETOX USE ONLY) PO ONE (10:00)
[2023-07-06] MEDS: HYDROCHLOROTHIAZIDE 25 MG TABLET (FP) PO SCH (10:03)
[2023-07-06] MEDS: amLODIPine BESYLATE 10 MG TABLET (FP) PO SCH (10:03)
[2023-07-06] MEDS: PRENATAL VITAMINS W/ FOLIC ACID TABLET (FP) PO SCH (10:03)
[2023-07-06] MEDS: HYDROCORTISONE 1% TOPICAL OINT 30 GM TUBE TP SCH ×2 (10:05→22:10)
[2023-07-06] MEDS: MELATONIN 5 MG TABLETS PO SCH (22:08)
[2023-07-06] MEDS: THIAMINE HCL 100 MG TABLET (FP) PO SCH (22:08)
[2023-07-07] MEDS: hydrOXYzine PAMOATE 25 MG CAPSULE (FP) PO PRN (05:30)
[2023-07-07] MEDS: METHOCARBAMOL 500 MG TABLET PO PRN (05:30)
[2023-07-07] MEDS: ACETAMINOPHEN 325 MG TABLET (FP) PO PRN (05:32)
[2023-07-07] MEDS: HYDROCORTISONE 1% TOPICAL OINT 30 GM TUBE TP SCH ×2 (10:08→22:17)
[2023-07-07] MEDS: amLODIPine BESYLATE 10 MG TABLET (FP) PO SCH (10:08)
[2023-07-07] MEDS: HYDROCHLOROTHIAZIDE 25 MG TABLET (FP) PO SCH (10:09)
[2023-07-07] MEDS: PRENATAL VITAMINS W/ FOLIC ACID TABLET (FP) PO SCH (10:10)
[2023-07-07] MEDS: THIAMINE HCL 100 MG TABLET (FP) PO SCH (22:16)
[2023-07-07] MEDS: MELATONIN 5 MG TABLETS PO SCH (22:17)
[2023-07-08] MEDS: ACETAMINOPHEN 325 MG TABLET (FP) PO PRN (00:12)
[2023-07-08] MEDS ORDERED: methaDONE HCL 10 MG TABLET (FOR DETOX USE ONLY) PO ONE (10:00)
[2023-07-08] MEDS: PRENATAL VITAMINS W/ FOLIC ACID TABLET (FP) PO SCH (10:04)
[2023-07-08] MEDS: HYDROCORTISONE 1% TOPICAL OINT 30 GM TUBE TP SCH ×2 (10:04→22:25)
[2023-07-08] MEDS: HYDROCHLOROTHIAZIDE 25 MG TABLET (FP) PO SCH (10:04)
[2023-07-08] MEDS: amLODIPine BESYLATE 10 MG TABLET (FP) PO SCH (10:05)
[2023-07-08] MEDS: THIAMINE HCL 100 MG TABLET (FP) PO SCH (22:09)
[2023-07-08] MEDS: MELATONIN 5 MG TABLETS PO SCH (22:09)
[2023-07-08] MEDS: METHOCARBAMOL 500 MG TABLET PO PRN (22:10)
[2023-07-09] MEDS: ACETAMINOPHEN 325 MG TABLET (FP) PO PRN (04:49)
[2023-07-09 08:50] VITALS: BP 141/74; PULSE 78; RESP 19; TEMP 97.5
== END 2023-07-09 09:54 | disposition home or self-care (01) | DRG 897 ==
LOC: YASAS 17:19 → Y3N 22:00
PROVIDERS: ADMIT Allergy & Immunology; ATTEND Surgery
PROC: HZ2ZZZZ Detoxification Services for Substance Abuse Treatment (ICD-10-PCS; principal; 2023-07-04)
DX: F11.23 Opioid dependence with withdrawal (principal); I16.0 Hypertensive urgency; L30.9 Dermatitis, unspecified
CPT/HCPCS: 36415; 80053; 80307; 85027; 86780; 87635

== ENCOUNTER 2023-09-19 10:38 | Inpatient (IN) | payer BC, OTHER ==
[2023-09-19 11:14] VITALS: BMI 31.6
[2023-09-19] MEDS ORDERED: POLYETHYLENE GLYCOL (HEALTHYLAX) 3350 17 GM PACKET PO PRN (11:41)
[2023-09-19] MEDS ORDERED: NALOXONE HCL (KLOXXADO) 8 MG SPRAY NS PRN (11:41)
[2023-09-19] MEDS ORDERED: DICYCLOMINE HCL 10 MG CAPSULE PO PRN (11:41)
[2023-09-19] MEDS ORDERED: BISMUTH SUBSALICYLATE 524 MG/30 ML PO PRN (11:41)
[2023-09-19] MEDS ORDERED: NALOXONE HCL 0.4 MG/ML VIAL IM PRN (11:41)
[2023-09-19] MEDS ORDERED: BENZOCAINE/MENTHOL (CHLORASEPTIC ) LOZENGE MM PRN (11:41)
[2023-09-19] MEDS ORDERED: BENZONATATE 200 MG CAPSULE PO PRN (11:41)
[2023-09-19] MEDS ORDERED: guaiFENesin 600 MG TABLET.ER (FP) PO PRN (11:41)
[2023-09-19] MEDS: ONDANSETRON *ODT* 4 MG TABLET SL PRN (12:07)
[2023-09-19] MEDS ORDERED: ONDANSETRON *ODT* 4 MG TABLET ONE (12:08)
[2023-09-19] MEDS: methaDONE HCL 10 MG TABLET (FOR DETOX USE ONLY) PO ONE (15:45)
[2023-09-19] MEDS: LOPERAMIDE HCL 2 MG CAPSULE PO PRN (15:49)
[2023-09-19] MEDS: diazePAM 5 MG TABLET PO PRN (17:34)
[2023-09-19] MEDS: MELATONIN 5 MG TABLETS PO SCH (22:13)
[2023-09-19] MEDS: THIAMINE HCL 100 MG TABLET (FP) PO SCH (22:13)
[2023-09-20] MEDS: hydrOXYzine PAMOATE 25 MG CAPSULE (FP) PO PRN (04:14)
[2023-09-20 10:14] LABS: HEMATOCRIT 35.1 % (35.4-49); HEMOGLOBIN 11.8 GM/dL (11.7-16.9); MCH 29.7 pg (25.7-33.7); MCHC 33.5 g/dl (32.0-35.9); MEAN CELL VOLUME 88.8 fl (80-96); MEAN PLT VOLUME 9.5 fl (7.5-11.1); PLATELET COUNT 204 10^3/uL (134-434); RBC 3.95 M/mm3 (4.00-5.60); WHITE BLOOD COUNT 6.2 K/mm3 (4.0-10.0)
[2023-09-20] MEDS: PRENATAL VITAMINS W/ FOLIC ACID TABLET (FP) PO SCH (10:33)
[2023-09-20] MEDS: HYDROCHLOROTHIAZIDE 25 MG TABLET (FP) PO SCH (10:33)
[2023-09-20] MEDS: amLODIPine BESYLATE 10 MG TABLET (FP) PO SCH (10:34)
[2023-09-20] MEDS: IBUPROFEN 600 MG TABLET (FP) PO PRN (10:37)
[2023-09-20] MEDS: FLU VACCINE (FLULAVAL) PF 60 MCG/0.5 ML SYRINGE 2023-2024 IM ONE (11:05)
[2023-09-20 11:27] LABS: POTASSIUM 4.2 mmol/L (3.5-5.1)
[2023-09-20 11:31] LABS: ALBUMIN 3.4 g/dl (3.4-5.0); CALCIUM 9.6 mg/dL (8.5-10.1)
[2023-09-20 11:33] LABS: CREATININE 1.1 mg/dL (0.55-1.3)
[2023-09-20 11:34] LABS: BILIRUBIN,TOTAL 0.2 mg/dL (0.2-1); TOT PROT 6.8 g/dl (6.4-8.2)
[2023-09-20] MEDS: MAGNESIUM HYDROX 2400MG/30ML ORAL SUSPENSION 30 ML CUP PO PRN (13:19)
[2023-09-20] MEDS: ACETAMINOPHEN 325 MG TABLET (FP) PO PRN (21:22)
[2023-09-20] MEDS: diazePAM 5 MG TABLET PO PRN (22:10)
[2023-09-21] MEDS: MAG HYDROX/AL HYDROX/SIMETH 30 ML UNIT-DOSE CUP PO PRN (06:00)
[2023-09-21] MEDS: methaDONE HCL 10 MG TABLET (FOR DETOX USE ONLY) PO ONE (09:33)
[2023-09-21] MEDS: cloNIDine HCL 0.1 MG TABLET PO PRN (22:19)
[2023-09-21] MEDS: diazePAM 5 MG TABLET PO PRN (22:20)
[2023-09-21] MEDS: IBUPROFEN 400 MG TABLET (FP) PO PRN (22:22)
[2023-09-23] MEDS: methaDONE HCL 10 MG TABLET (FOR DETOX USE ONLY) PO ONE (10:25)
[2023-09-23 22:39] VITALS: TEMP 97.8
[2023-09-24 06:32] VITALS: BP 152/74; PULSE 79; RESP 17
== END 2023-09-24 10:05 | disposition home or self-care (01) | DRG 897 ==
LOC: YASAS 10:38 → Y6N 12:21
PROVIDERS: ADMIT Allergy & Immunology; ATTEND Allergy & Immunology
PROC: HZ2ZZZZ Detoxification Services for Substance Abuse Treatment (ICD-10-PCS; principal; 2023-09-19)
DX: F11.23 Opioid dependence with withdrawal (principal); F10.230 Alcohol dependence with withdrawal, uncomplicated; I10 Essential (primary) hypertension; L30.9 Dermatitis, unspecified
CPT/HCPCS: 36415; 80053; 85027; 86780; 87635; 87811; 90686; G0008; Q0162

== ENCOUNTER 2023-11-11 08:52 | Inpatient (IN) | payer BC ==
[2023-11-11 09:19] VITALS: BMI 29.5
[2023-11-11] MEDS ORDERED: NALOXONE HCL (KLOXXADO) 8 MG SPRAY NS PRN (09:54)
[2023-11-11] MEDS ORDERED: guaiFENesin 600 MG TABLET.ER (FP) PO PRN (09:54)
[2023-11-11] MEDS ORDERED: DICYCLOMINE HCL 10 MG CAPSULE PO PRN (09:54)
[2023-11-11] MEDS ORDERED: BENZONATATE 200 MG CAPSULE PO PRN (09:54)
[2023-11-11] MEDS ORDERED: BENZOCAINE/MENTHOL (CHLORASEPTIC ) LOZENGE MM PRN (09:54)
[2023-11-11] MEDS ORDERED: hydrOXYzine PAMOATE 25 MG CAPSULE (FP) PO PRN (09:54)
[2023-11-11] MEDS ORDERED: POLYETHYLENE GLYCOL (HEALTHYLAX) 3350 17 GM PACKET PO PRN (09:54)
[2023-11-11] MEDS ORDERED: MAG HYDROX/AL HYDROX/SIMETH 30 ML UNIT-DOSE CUP PO PRN (09:54)
[2023-11-11] MEDS ORDERED: METHOCARBAMOL 500 MG TABLET PO PRN (09:54)
[2023-11-11] MEDS ORDERED: LOPERAMIDE HCL 2 MG CAPSULE PO PRN (09:54)
[2023-11-11] MEDS ORDERED: BISMUTH SUBSALICYLATE 262 MG/15 ML BTL PO PRN (09:54)
[2023-11-11] MEDS ORDERED: ONDANSETRON *ODT* 4 MG TABLET SL PRN (09:54)
[2023-11-11] MEDS ORDERED: MAGNESIUM HYDROX 2400MG/30ML ORAL SUSPENSION 30 ML CUP PO PRN (09:54)
[2023-11-11] MEDS ORDERED: NALOXONE HCL 0.4 MG/ML VIAL IM PRN (09:54)
[2023-11-11] MEDS ORDERED: PRENATAL VITAMINS W/ FOLIC ACID TABLET (FP) PO ONE (11:21)
[2023-11-11] MEDS ORDERED: cloNIDine HCL 0.1 MG TABLET ONE (11:21)
[2023-11-11] MEDS: cloNIDine HCL 0.1 MG TABLET PO ONE (11:23)
[2023-11-11] MEDS: PRENATAL VITAMINS W/ FOLIC ACID TABLET (FP) PO SCH (11:23)
[2023-11-11] MEDS: methaDONE HCL 10 MG TABLET (FOR DETOX USE ONLY) PO ONE (19:15)
[2023-11-11] MEDS: diazePAM 5 MG TABLET PO PRN (19:38)
[2023-11-11] MEDS: MELATONIN 5 MG TABLETS PO SCH (22:33)
[2023-11-11] MEDS: THIAMINE HCL 100 MG TABLET (FP) PO SCH (22:33)
[2023-11-12] MEDS: ACETAMINOPHEN 325 MG TABLET (FP) PO PRN (04:36)
[2023-11-12] MEDS: cloNIDine HCL 0.1 MG TABLET PO PRN (09:45)
[2023-11-12] MEDS ORDERED: methaDONE HCL 10 MG TABLET (FOR DETOX USE ONLY) PO ONE (10:00)
[2023-11-12 12:24] LABS: HEMATOCRIT 38.2 % (35.4-49); HEMOGLOBIN 12.9 GM/dL (11.7-16.9); MCH 29.6 pg (25.7-33.7); MCHC 33.8 g/dl (32.0-35.9); MEAN CELL VOLUME 87.7 fl (80-96); MEAN PLT VOLUME 8.6 fl (7.5-11.1); PLATELET COUNT 201 10^3/uL (134-434); RBC 4.36 M/mm3 (4.00-5.60); RDW 12.8 % (11.9-15.9); WHITE BLOOD COUNT 4.7 K/mm3 (4.0-10.0)
[2023-11-12 12:43] LABS: POTASSIUM 4.6 mmol/L (3.5-5.1)
[2023-11-12] MEDS: amLODIPine BESYLATE 10 MG TABLET (FP) PO SCH (12:44)
[2023-11-12 12:51] LABS: CALCIUM 9.8 mg/dL (8.5-10.1)
[2023-11-12 12:52] LABS: BLOOD UREA NITROGEN 12.8 mg/dL (7-18)
[2023-11-12 12:53] LABS: CREATININE 0.9 mg/dL (0.55-1.3)
[2023-11-12 12:55] LABS: BILIRUBIN,TOTAL 0.6 mg/dL (0.2-1); TOT PROT 8.2 g/dl (6.4-8.2)
[2023-11-12] MEDS: IBUPROFEN 400 MG TABLET (FP) PO PRN (14:01)
[2023-11-13] MEDS: IBUPROFEN 600 MG TABLET (FP) PO PRN (09:18)
[2023-11-13] MEDS: methaDONE HCL 10 MG TABLET (FOR DETOX USE ONLY) PO ONE (09:19)
[2023-11-14 09:37] VITALS: BP 152/75; PULSE 79; RESP 17; TEMP 97.8
== END 2023-11-14 09:20 | disposition home or self-care (01) | DRG 897 ==
LOC: YASAS 08:52 → Y6N 10:11
PROVIDERS: ADMIT Allergy & Immunology; ATTEND Surgery
PROC: HZ2ZZZZ Detoxification Services for Substance Abuse Treatment (ICD-10-PCS; principal; 2023-11-11)
DX: F11.23 Opioid dependence with withdrawal (principal); F10.230 Alcohol dependence with withdrawal, uncomplicated; I10 Essential (primary) hypertension; L30.9 Dermatitis, unspecified; L40.9 Psoriasis, unspecified
CPT/HCPCS: 36415; 80053; 80305; 80307; 85027; 86780; 87635; 87811; 93005; 93010

== ENCOUNTER 2024-02-13 09:29 | Inpatient (IN) | payer OTHER, BC ==
[2024-02-13 09:57] VITALS: BMI 29.2
[2024-02-13] MEDS ORDERED: cloNIDine HCL 0.1 MG TABLET ONE ×2 (10:37→12:00)
[2024-02-13] MEDS: cloNIDine HCL 0.1 MG TABLET PO ONE ×2 (10:38→12:07)
[2024-02-13] MEDS ORDERED: NALOXONE HCL 0.4 MG/ML VIAL IM PRN (11:07)
[2024-02-13] MEDS ORDERED: MAGNESIUM HYDROX 2400MG/30ML ORAL SUSPENSION 30 ML CUP PO PRN (11:07)
[2024-02-13] MEDS ORDERED: NALOXONE (NARCAN) HCL 4 MG/0.1 ML SPRAY NS PRN (11:07)
[2024-02-13] MEDS ORDERED: guaiFENesin 600 MG TABLET.ER (FP) PO PRN (11:07)
[2024-02-13] MEDS ORDERED: MAG HYDROX/AL HYDROX/SIMETH 30 ML UNIT-DOSE CUP PO PRN (11:07)
[2024-02-13] MEDS ORDERED: POLYETHYLENE GLYCOL (HEALTHYLAX) 3350 17 GM PACKET PO PRN (11:07)
[2024-02-13] MEDS ORDERED: LOPERAMIDE HCL 2 MG CAPSULE PO PRN (11:07)
[2024-02-13] MEDS ORDERED: IBUPROFEN 400 MG TABLET (FP) PO PRN (11:07)
[2024-02-13] MEDS ORDERED: BENZOCAINE/MENTHOL (CHLORASEPTIC ) LOZENGE MM PRN (11:07)
[2024-02-13] MEDS ORDERED: BENZONATATE 200 MG CAPSULE PO PRN (11:07)
[2024-02-13] MEDS ORDERED: methaDONE HCL 10 MG TABLET (FOR DETOX USE ONLY) ONE (12:00)
[2024-02-13] MEDS ORDERED: MAG HYDROX/AL HYDROX/SIMETH 30 ML UNIT-DOSE CUP ONE (12:02)
[2024-02-13] MEDS: methaDONE HCL 10 MG TABLET (FOR DETOX USE ONLY) PO ONE (12:07)
[2024-02-13] MEDS: HYDROCORTISONE 1% TOPICAL OINT 30 GM TUBE TP SCH (16:53)
[2024-02-13] MEDS: MELATONIN 5 MG TABLETS PO SCH (22:59)
[2024-02-13] MEDS: THIAMINE 100 MG TABLET PO SCH (22:59)
[2024-02-13] MEDS: METHOCARBAMOL 500 MG TABLET PO PRN (23:00)
[2024-02-14] MEDS: ACETAMINOPHEN 325 MG TABLET (FP) PO PRN (05:40)
[2024-02-14] MEDS: amLODIPine BESYLATE 10 MG TABLET (FP) PO SCH (09:18)
[2024-02-14] MEDS: PRENATAL VITAMINS W/ FOLIC ACID TABLET (FP) PO SCH (09:20)
[2024-02-14 11:47] LABS: HEMATOCRIT 37.5 % (35.4-49); HEMOGLOBIN 12.5 GM/dL (11.7-16.9); MCH 29.8 pg (25.7-33.7); MCHC 33.4 g/dl (32.0-35.9); MEAN CELL VOLUME 89.3 fl (80-96); MEAN PLT VOLUME 9.5 fl (7.5-11.1); PLATELET COUNT 187 10^3/uL (134-434); RDW 12.4 % (11.9-15.9); WHITE BLOOD COUNT 7.6 K/mm3 (4.0-10.0)
[2024-02-14 11:52] LABS: CHLORIDE 104 mmol/L (98-107); SODIUM 137 mmol/L (136-145)
[2024-02-14 12:03] LABS: ANION GAP 5 mmol/L (4-13); BLOOD UREA NITROGEN 13.3 mg/dL (7-18); CALCIUM 9.4 mg/dL (8.5-10.1); CO2 29 mmol/L (21-32); GLUCOSE,RANDOM 81 mg/dL (74-106)
[2024-02-14 12:04] LABS: ALBUMIN 3.4 g/dl (3.4-5.0); SGPT/ALT 19 U/L (13-61)
[2024-02-14 12:05] LABS: BILIRUBIN,TOTAL 0.6 mg/dL (0.2-1)
[2024-02-14 12:06] LABS: SGOT/AST 23 U/L (15-37); TOT PROT 6.8 g/dl (6.4-8.2)
[2024-02-14 12:08] LABS: ALK PHOS 101 U/L (45-117)
[2024-02-14] MEDS: hydrOXYzine PAMOATE 25 MG CAPSULE (FP) PO PRN (21:28)
[2024-02-15] MEDS: BISMUTH SUBSALICYLATE 524 MG/30 ML PO PRN (06:24)
[2024-02-15] MEDS: methaDONE HCL 10 MG TABLET (FOR DETOX USE ONLY) PO ONE (09:02)
[2024-02-15] MEDS: ONDANSETRON *ODT* 4 MG TABLET SL PRN (12:12)
[2024-02-15] MEDS: cloNIDine HCL 0.1 MG TABLET PO PRN (12:16)
[2024-02-15] MEDS: DICYCLOMINE HCL 10 MG CAPSULE PO PRN (12:18)
[2024-02-15] MEDS: FAMOTIDINE 20 MG TABLET PO SCH (16:43)
[2024-02-15] MEDS: TRIMETHOBENZAMIDE HCL 200MG/2ML INJ IM PRN (16:43)
[2024-02-16] MEDS: cloNIDine HCL 0.1 MG TABLET PO PRN (13:25)
[2024-02-17] MEDS: methaDONE HCL 10 MG TABLET (FOR DETOX USE ONLY) PO ONE (10:02)
[2024-02-17 21:01] VITALS: RESP 16
[2024-02-17] MEDS: IBUPROFEN 600 MG TABLET (FP) PO PRN (22:35)
[2024-02-18 09:14] VITALS: BP 132/75; PULSE 60; TEMP 98.4
== END 2024-02-18 09:18 | disposition home or self-care (01) | DRG 897 ==
LOC: YASAS 09:29 → Y6N 12:46
PROVIDERS: ADMIT Allergy & Immunology; ATTEND Surgery
PROC: HZ2ZZZZ Detoxification Services for Substance Abuse Treatment (ICD-10-PCS; principal; 2024-02-13)
DX: F11.23 Opioid dependence with withdrawal (principal); I10 Essential (primary) hypertension; L30.9 Dermatitis, unspecified; K29.70 Gastritis, unspecified, without bleeding
CPT/HCPCS: 36415; 80053; 80305; 80307; 85027; 86780; 93005; 93010; Q0162

== ENCOUNTER 2024-05-16 09:34 | Inpatient (IN) | payer OTHER, BC ==
[2024-05-16 10:03] VITALS: BMI 28.0
[2024-05-16] MEDS ORDERED: BENZONATATE 200 MG CAPSULE PO PRN (10:52)
[2024-05-16] MEDS ORDERED: POLYETHYLENE GLYCOL (HEALTHYLAX) 3350 17 GM PACKET PO PRN (10:52)
[2024-05-16] MEDS ORDERED: IBUPROFEN 400 MG TABLET (FP) PO PRN (10:52)
[2024-05-16] MEDS ORDERED: guaiFENesin 600 MG TABLET.ER (FP) PO PRN (10:52)
[2024-05-16] MEDS ORDERED: MAG HYDROX/AL HYDROX/SIMETH 30 ML UNIT-DOSE CUP PO PRN (10:52)
[2024-05-16] MEDS ORDERED: NALOXONE HCL 0.4 MG/ML VIAL IM PRN (10:52)
[2024-05-16] MEDS ORDERED: IBUPROFEN 600 MG TABLET (FP) PO PRN (10:52)
[2024-05-16] MEDS ORDERED: BENZOCAINE/MENTHOL (CHLORASEPTIC ) LOZENGE MM PRN (10:52)
[2024-05-16] MEDS ORDERED: LOPERAMIDE HCL 2 MG CAPSULE PO PRN (10:52)
[2024-05-16] MEDS ORDERED: MAGNESIUM HYDROX 2400MG/30ML ORAL SUSPENSION 30 ML CUP PO PRN (10:52)
[2024-05-16] MEDS ORDERED: ONDANSETRON *ODT* 4 MG TABLET SL PRN (10:52)
[2024-05-16] MEDS ORDERED: BISMUTH SUBSALICYLATE 524 MG/30 ML PO PRN (10:52)
[2024-05-16] MEDS ORDERED: NALOXONE (NARCAN) HCL 4 MG/0.1 ML SPRAY NS PRN (10:52)
[2024-05-16] MEDS ORDERED: methaDONE HCL 10 MG TABLET (FOR DETOX USE ONLY) ONE (11:48)
[2024-05-16] MEDS: methaDONE HCL 10 MG TABLET (FOR DETOX USE ONLY) PO ONE (11:54)
[2024-05-16] MEDS: MELATONIN 5 MG TABLETS PO SCH (22:12)
[2024-05-16] MEDS: THIAMINE 100 MG TABLET PO SCH (22:12)
[2024-05-16] MEDS: HYDROCORTISONE 1% TOPICAL OINT 30 GM TUBE TP SCH (22:12)
[2024-05-16] MEDS: FAMOTIDINE 20 MG TABLET PO SCH (22:12)
[2024-05-17] MEDS: HYDROCHLOROTHIAZIDE 25 MG TABLET (FP) PO SCH (10:16)
[2024-05-17] MEDS: PRENATAL VITAMINS W/ FOLIC ACID TABLET (FP) PO SCH (10:16)
[2024-05-17] MEDS: cloNIDine HCL 0.1 MG TABLET PO PRN (13:13)
[2024-05-17 13:47] LABS: HEMATOCRIT 35.1 % (35.4-49); HEMOGLOBIN 11.9 GM/dL (11.7-16.9); MCH 30.5 pg (25.7-33.7); MCHC 33.8 g/dl (32.0-35.9); MEAN PLT VOLUME 9.7 fl (7.5-11.1); PLATELET COUNT 290 10^3/uL (134-434); RDW 12.8 % (11.9-15.9); WHITE BLOOD COUNT 11.1 K/mm3 (4.0-10.0)
[2024-05-17 14:57] LABS: ALBUMIN 3.3 g/dl (3.4-5.0); BLOOD UREA NITROGEN 23.6 mg/dL (7-18)
[2024-05-17 15:00] LABS: CREATININE 1.4 mg/dL (0.55-1.3)
[2024-05-17 15:01] LABS: BILIRUBIN,TOTAL 0.3 mg/dL (0.2-1)
[2024-05-17 15:02] LABS: TOT PROT 6.4 g/dl (6.4-8.2)
[2024-05-17] MEDS: POTASSIUM CHLORIDE ORAL LIQUID 20 MEQ/15 ML PO SCH (19:27)
[2024-05-17] MEDS: ACETAMINOPHEN 325 MG TABLET (FP) PO PRN (22:13)
[2024-05-18] MEDS: methaDONE HCL 10 MG TABLET (FOR DETOX USE ONLY) PO ONE (10:12)
[2024-05-18 11:46] LABS: POTASSIUM 3.9 mmol/L (3.5-5.1)
[2024-05-18 11:50] LABS: CREATININE 1.1 mg/dL (0.55-1.3)
[2024-05-18 12:03] LABS: MAGNESIUM 1.7 mg/dL (1.8-2.4)
[2024-05-19] MEDS: amLODIPine BESYLATE 10 MG TABLET (FP) PO SCH (11:53)
[2024-05-19] MEDS: HYDROCHLOROTHIAZIDE 25 MG TABLET (FP) PO SCH (15:48)
[2024-05-20] MEDS: methaDONE HCL 10 MG TABLET (FOR DETOX USE ONLY) PO ONE (10:06)
[2024-05-21 09:14] VITALS: BP 146/72; PULSE 72; RESP 18; TEMP 97.5
== END 2024-05-21 10:15 | disposition home or self-care (01) | DRG 897 ==
LOC: YASAS 09:34 → Y3N 12:00
PROVIDERS: ADMIT Allergy & Immunology; ATTEND Surgery
PROC: HZ2ZZZZ Detoxification Services for Substance Abuse Treatment (ICD-10-PCS; principal; 2024-05-16)
DX: F11.23 Opioid dependence with withdrawal (principal); F17.210 Nicotine dependence, cigarettes, uncomplicated; E87.6 Hypokalemia; I10 Essential (primary) hypertension; K29.70 Gastritis, unspecified, without bleeding; L30.9 Dermatitis, unspecified; L40.9 Psoriasis, unspecified
CPT/HCPCS: 36415; 80053; 80305; 80307; 82565; 83735; 84132; 85027; 86780; 93005; 93010

== ENCOUNTER 2024-08-08 10:08 | Inpatient (IN) | payer OTHER, BC ==
[2024-08-08] MEDS: amLODIPine BESYLATE 10 MG TABLET (FP) PO ONE (11:04)
[2024-08-08] MEDS: HYDROCHLOROTHIAZIDE 25 MG TABLET (FP) PO ONE (11:04)
[2024-08-08] MEDS ORDERED: ONDANSETRON *ODT* 4 MG TABLET SL PRN (11:20)
[2024-08-08] MEDS ORDERED: LOPERAMIDE HCL 2 MG CAPSULE PO PRN (11:20)
[2024-08-08] MEDS ORDERED: guaiFENesin 600 MG TABLET.ER (FP) PO PRN (11:20)
[2024-08-08] MEDS ORDERED: ACETAMINOPHEN 325 MG TABLET (FP) PO PRN (11:20)
[2024-08-08] MEDS ORDERED: BISMUTH SUBSALICYLATE 262 MG/15 ML BTL PO PRN (11:20)
[2024-08-08] MEDS ORDERED: METHOCARBAMOL 500 MG TABLET PO PRN (11:20)
[2024-08-08] MEDS ORDERED: NALOXONE (NARCAN) HCL 4 MG/0.1 ML SPRAY NS PRN (11:20)
[2024-08-08] MEDS ORDERED: hydrOXYzine PAMOATE 25 MG CAPSULE (FP) PO PRN (11:20)
[2024-08-08] MEDS ORDERED: BENZOCAINE/MENTHOL (CHLORASEPTIC ) LOZENGE MM PRN (11:20)
[2024-08-08] MEDS ORDERED: DICYCLOMINE HCL 10 MG CAPSULE PO PRN (11:20)
[2024-08-08] MEDS ORDERED: MAGNESIUM HYDROX 2400MG/30ML ORAL SUSPENSION 30 ML CUP PO PRN (11:20)
[2024-08-08] MEDS ORDERED: POLYETHYLENE GLYCOL (HEALTHYLAX) 3350 17 GM PACKET PO PRN (11:20)
[2024-08-08] MEDS ORDERED: MAG HYDROX/AL HYDROX/SIMETH 30 ML UNIT-DOSE CUP PO PRN (11:20)
[2024-08-08] MEDS ORDERED: IBUPROFEN 400 MG TABLET (FP) PO PRN (11:20)
[2024-08-08] MEDS ORDERED: BENZONATATE 200 MG CAPSULE PO PRN (11:20)
[2024-08-08] MEDS ORDERED: clonazePAM 0.5 MG ODT TABLETS SL PRN (11:23)
[2024-08-08 12:26] VITALS: BMI 30.7
[2024-08-08] MEDS: methaDONE HCL 10 MG TABLET (FOR DETOX USE ONLY) PO PRN (22:18)
[2024-08-08] MEDS: MELATONIN 5 MG TABLETS PO SCH (22:20)
[2024-08-08] MEDS: THIAMINE 100 MG TABLET PO SCH (22:20)
[2024-08-08] MEDS: methaDONE HCL 10 MG TABLET (FOR DETOX USE ONLY) PO ONE (23:19)
[2024-08-09] MEDS: HYDROCHLOROTHIAZIDE 25 MG TABLET (FP) PO SCH (09:42)
[2024-08-09] MEDS: amLODIPine BESYLATE 10 MG TABLET (FP) PO SCH (09:42)
[2024-08-09] MEDS: PRENATAL VITAMINS W/ FOLIC ACID TABLET (FP) PO SCH (09:42)
[2024-08-09] MEDS: methaDONE HCL 10 MG TABLET (FOR DETOX USE ONLY) PO ONE (09:42)
[2024-08-09] MEDS: PETROLATUM, WHITE 30 GM TUBE TP SCH (09:44)
[2024-08-09 11:26] LABS: POTASSIUM 4.7 mmol/L (3.5-5.1)
[2024-08-09 11:30] LABS: BLOOD UREA NITROGEN 11.6 mg/dL (7-18); CALCIUM 9.5 mg/dL (8.5-10.1)
[2024-08-09 11:33] LABS: ALBUMIN 3.4 g/dl (3.4-5.0); CREATININE 0.9 mg/dL (0.55-1.3); HEMATOCRIT 32.5 % (35.4-49); HEMOGLOBIN 10.7 GM/dL (11.7-16.9); MCH 29.5 pg (25.7-33.7); MEAN CELL VOLUME 89.4 fl (80-96); MEAN PLT VOLUME 9.5 fl (7.5-11.1); PLATELET COUNT 263 10^3/uL (134-434); RBC 3.64 M/mm3 (4.00-5.60); RDW 12.7 % (11.9-15.9); WHITE BLOOD COUNT 6.5 K/mm3 (4.0-10.0)
[2024-08-09 11:34] LABS: BILIRUBIN,TOTAL 0.6 mg/dL (0.2-1)
[2024-08-09 11:35] LABS: TOT PROT 7.4 g/dl (6.4-8.2)
[2024-08-09] MEDS: SUVOREXANT 10 MG TABLET PO PRN (21:37)
[2024-08-09] MEDS: HYDROCORTISONE 1% TOPICAL CREAM 30 GM TUBE TP SCH (21:39)
[2024-08-10] MEDS: IBUPROFEN 600 MG TABLET (FP) PO PRN (06:23)
[2024-08-10] MEDS: cloNIDine HCL 0.1 MG TABLET PO PRN (22:55)
[2024-08-11] MEDS: methaDONE HCL 10 MG TABLET (FOR DETOX USE ONLY) PO ONE (09:34)
[2024-08-13] MEDS: methaDONE HCL 10 MG TABLET (FOR DETOX USE ONLY) PO ONE (09:17)
[2024-08-13 09:30] VITALS: BP 154/78; PULSE 71; RESP 17; TEMP 97
[2024-08-13] MEDS: NALOXONE (NYS OPIOID OVERDOSE PROGRAM) 4 MG/0.1 ML SPRAY NS SCH (10:38)
== END 2024-08-13 10:41 | disposition home or self-care (01) | DRG 897 ==
LOC: YASAS 10:08 → Y6N 12:17
PROVIDERS: ADMIT Allergy & Immunology; ATTEND Surgery
PROC: HZ2ZZZZ Detoxification Services for Substance Abuse Treatment (ICD-10-PCS; principal; 2024-08-08)
DX: F11.23 Opioid dependence with withdrawal (principal); F14.20 Cocaine dependence, uncomplicated; F10.230 Alcohol dependence with withdrawal, uncomplicated; F19.982 Other psychoactive substance use, unspecified with psychoactive substance-induced sleep disorder; F41.9 Anxiety disorder, unspecified; F32.A Depression, unspecified; I10 Essential (primary) hypertension; L40.9 Psoriasis, unspecified; L30.9 Dermatitis, unspecified
CPT/HCPCS: 36415; 80053; 80307; 85027; 86780; 93005; 93010

== ENCOUNTER 2025-01-15 09:52 | Inpatient (IN) | payer OTHER ==
[2025-01-15 10:43] VITALS: BMI 23.8
[2025-01-15] MEDS ORDERED: hydrOXYzine PAMOATE 25 MG CAPSULE (FP) PO PRN (11:23)
[2025-01-15] MEDS ORDERED: methaDONE HCL 10 MG TABLET (FOR DETOX USE ONLY) PO PRN (11:23)
[2025-01-15] MEDS ORDERED: POLYETHYLENE GLYCOL (HEALTHYLAX) 3350 17 GM PACKET PO PRN (11:23)
[2025-01-15] MEDS ORDERED: DICYCLOMINE HCL 10 MG CAPSULE PO PRN (11:23)
[2025-01-15] MEDS ORDERED: BENZOCAINE/MENTHOL (CHLORASEPTIC ) LOZENGE MM PRN (11:23)
[2025-01-15] MEDS ORDERED: ACETAMINOPHEN 325 MG TABLET (FP) PO PRN (11:23)
[2025-01-15] MEDS ORDERED: IBUPROFEN 400 MG TABLET (FP) PO PRN (11:23)
[2025-01-15] MEDS ORDERED: LOPERAMIDE HCL 2 MG CAPSULE PO PRN (11:23)
[2025-01-15] MEDS ORDERED: MAGNESIUM HYDROX 2400MG/30ML ORAL SUSPENSION 30 ML CUP PO PRN (11:23)
[2025-01-15] MEDS ORDERED: NALOXONE (NARCAN) HCL 4 MG/0.1 ML SPRAY NS PRN (11:23)
[2025-01-15] MEDS ORDERED: cloNIDine HCL 0.1 MG TABLET PO PRN (11:23)
[2025-01-15] MEDS ORDERED: BENZONATATE 200 MG CAPSULE PO PRN (11:23)
[2025-01-15] MEDS ORDERED: guaiFENesin 600 MG TABLET.ER (FP) PO PRN (11:23)
[2025-01-15] MEDS ORDERED: amLODIPine BESYLATE 5 MG TABLET (FP) ONE (11:52)
[2025-01-15] MEDS ORDERED: methaDONE HCL 10 MG TABLET (FOR DETOX USE ONLY) ONE (11:52)
[2025-01-15] MEDS: methaDONE HCL 10 MG TABLET (FOR DETOX USE ONLY) PO ONE (11:55)
[2025-01-15] MEDS: amLODIPine BESYLATE 5 MG TABLET (FP) PO ONE (11:58)
[2025-01-15] MEDS ORDERED: amLODIPine BESYLATE 5 MG TABLET (FP) PO ONE (12:00)
[2025-01-15] MEDS: MELATONIN 5 MG TABLETS PO SCH (22:25)
[2025-01-15] MEDS: THIAMINE 100 MG TABLET PO SCH (22:25)
[2025-01-15] MEDS: ONDANSETRON *ODT* 4 MG TABLET SL PRN (22:26)
[2025-01-16] MEDS: IBUPROFEN 600 MG TABLET (FP) PO PRN (05:45)
[2025-01-16] MEDS: BISMUTH SUBSALICYLATE 524 MG/30 ML PO PRN (05:46)
[2025-01-16] MEDS: PRENATAL VITAMINS W/ FOLIC ACID TABLET (FP) PO SCH (09:35)
[2025-01-16] MEDS: methaDONE HCL 10 MG TABLET (FOR DETOX USE ONLY) PO ONE (09:37)
[2025-01-16] MEDS: HYDROCHLOROTHIAZIDE 25 MG TABLET (FP) PO SCH (09:37)
[2025-01-16] MEDS: amLODIPine BESYLATE 10 MG TABLET (FP) PO SCH (09:38)
[2025-01-16 15:04] LABS: HEMATOCRIT 20.2 % (40.1-51.0); HEMOGLOBIN 5.9 g/dL (13.7-17.5); MCHC 29.2 g/dl (32.3-36.5); MEAN CELL VOLUME 89.4 fl (79.0-92.2); MEAN PLT VOLUME 9.6 fl (9.4-12.4); PLATELET COUNT 238 x10^3/uL (163-337); RDW 19.3 % (12.2-16.4)
[2025-01-16 15:18] LABS: CHLORIDE 104 mmol/L (98-107); SODIUM 137 mmol/L (136-145)
[2025-01-16 15:21] LABS: ALBUMIN 2.7 g/dl (3.4-5.0); ANION GAP 10 mmol/L (4-13); CALCIUM 8.8 mg/dL (8.5-10.1); CO2 23 mmol/L (21-32)
[2025-01-16 15:22] LABS: BLOOD UREA NITROGEN 38.8 mg/dL (7-18); GLUCOSE,RANDOM 146 mg/dL (74-106)
[2025-01-16 15:24] LABS: SGOT/AST 52 U/L (15-37); SGPT/ALT 11 U/L (13-61)
[2025-01-16 15:26] LABS: BILIRUBIN,TOTAL 0.2 mg/dL (0.2-1); TOT PROT 5.9 g/dl (6.4-8.2)
[2025-01-16 16:46] LABS: ALK PHOS > 2330 U/L (45-117)
[2025-01-16 20:59] LABS: HEMATOCRIT 21.1 % (40.1-51.0); HEMOGLOBIN 6.2 g/dL (13.7-17.5); MCHC 29.4 g/dl (32.3-36.5); MEAN CELL VOLUME 90.2 fl (79.0-92.2); MEAN PLT VOLUME 9.3 fl (9.4-12.4); PLATELET COUNT 254 x10^3/uL (163-337); RDW 18.9 % (12.2-16.4)
[2025-01-16 21:11] LABS: CHLORIDE 103 mmol/L (98-107); POTASSIUM 4.8 mmol/L (3.5-5.1); SODIUM 137 mmol/L (136-145)
[2025-01-16 21:12] LABS: ALBUMIN 2.8 g/dl (3.4-5.0); ANION GAP 9 mmol/L (4-13); BLOOD UREA NITROGEN 38.2 mg/dL (7-18); CO2 25 mmol/L (21-32); GAMMA GLUTAMYL TRANSPEPTIDASE 25 U/L (5-85); GLUCOSE,RANDOM 112 mg/dL (74-106)
[2025-01-16 21:15] LABS: CREATININE 2.2 mg/dL (0.55-1.3); SGOT/AST 43 U/L (15-37); SGPT/ALT 13 U/L (13-61)
[2025-01-16 21:18] LABS: BILIRUBIN,TOTAL 0.2 mg/dL (0.2-1); TOT PROT 6.3 g/dl (6.4-8.2)
[2025-01-16 21:38] LABS: ALK PHOS > 2330 U/L (45-117)
[2025-01-16] MEDS: METHOCARBAMOL 500 MG TABLET PO PRN (22:21)
[2025-01-17] MEDS: MAG HYDROX/AL HYDROX/SIMETH 30 ML UNIT-DOSE CUP PO PRN (05:29)
[2025-01-17 15:55] LABS: ABSOLUTE IMMATURE GRANULOCYTES 0.03 x10^3/uL (0.0-0.031); BASOPHILS # 0.01 x10^3/uL (0.01-0.08); EOSINOPHIL % 1.1 % (0.8-7.0); EOSINOPHILS # 0.06 x10^3/uL (0.04-0.54); HEMATOCRIT 19.6 % (40.1-51.0); HEMOGLOBIN 5.5 g/dL (13.7-17.5); MCHC 28.1 g/dl (32.3-36.5); MEAN CELL VOLUME 90.7 fl (79.0-92.2); MEAN PLT VOLUME 9.9 fl (9.4-12.4); MONOCYTE # 0.58 x10^3/uL (0.30-0.82); MONOCYTE % 10.8 % (5.3-12.2); PLATELET COUNT 232 x10^3/uL (163-337)
[2025-01-17 16:00] LABS: POTASSIUM 4.8 mmol/L (3.5-5.1)
[2025-01-17 16:05] LABS: CALCIUM 8.7 mg/dL (8.5-10.1)
[2025-01-17 16:07] LABS: CREATININE 1.6 mg/dL (0.55-1.3)
[2025-01-17 16:09] LABS: BLOOD UREA NITROGEN 31.2 mg/dL (7-18)
[2025-01-17] MEDS: AMOXICILLIN 500 MG CAPSULE (FP) PO SCH (22:07)
[2025-01-18] MEDS: methaDONE HCL 10 MG TABLET (FOR DETOX USE ONLY) PO ONE (10:11)
[2025-01-20] MEDS: methaDONE HCL 10 MG TABLET (FOR DETOX USE ONLY) PO ONE (09:27)
[2025-01-21 09:18] VITALS: BP 109/56; PULSE 89; RESP 18; TEMP 98
== END 2025-01-21 09:58 | disposition home or self-care (01) | DRG 897 ==
LOC: YASAS 09:52 → Y6N 11:30
PROVIDERS: ADMIT Allergy & Immunology; ATTEND Allergy & Immunology
PROC: HZ2ZZZZ Detoxification Services for Substance Abuse Treatment (ICD-10-PCS; principal; 2025-01-15)
DX: F10.230 Alcohol dependence with withdrawal, uncomplicated (principal); F19.282 Other psychoactive substance dependence with psychoactive substance-induced sleep disorder; N17.9 Acute kidney failure, unspecified; C41.9 Malignant neoplasm of bone and articular cartilage, unspecified; D64.9 Anemia, unspecified; I10 Essential (primary) hypertension; L40.9 Psoriasis, unspecified
CPT/HCPCS: 36415; 80048; 80053; 80305; 80307; 82977; 85025; 85027; 86780; 93005; 93010; Q0162